=== PATIENT | female | born 1985 | race Caucasian/White ===

== ENCOUNTER 2017-09-09 17:56 | Emergency (ER) | payer OTHER ==
[2017-09-09] MEDS: ACETAMINOPHEN 325 MG TAB PO (22:03)
[2017-09-09] MEDS: SOD CHLORIDE 0.9% 1,000 ML IV (22:05)
[2017-09-09 22:17] LABS: ADD MAN DIFF? NO
[2017-09-09 22:21] LABS: BASOPHIL # 0.1 10^3/ul (0.0-0.1); BASOPHILS % 0.5 % (0.0-2.0); EOSINOPHILS # 0.1 10^3/ul (0.0-0.5); EOSINOPHILS % 0.8 % (0.0-7.0); HEMATOCRIT 39.5 % (37.0-47.0); HEMOGLOBIN 13.4 g/dl (12.0-16.0); LYMPHOCYTES # 4.2 10^3/ul (0.8-2.9); LYMPHOCYTES % 34.8 % (15.0-51.0); MEAN CORPUSCULAR HEMOGLOBIN 29.5 pg (29.0-33.0); MEAN CORPUSCULAR HGB CONC 33.9 g/dl (32.0-37.0); MEAN CORPUSCULAR VOLUME 86.8 fl (82.0-101.0); MEAN PLATELET VOLUME 9.8 fl (7.4-10.4); MONOCYTE # 0.9 10^3/ul (0.3-0.9); MONOCYTES % 7.5 % (0.0-11.0); NEUTROPHIL # 6.8 10^3/ul (1.6-7.5); PLATELET COUNT 355 10^3/UL (140-415); RED BLOOD COUNT 4.55 10^6/ul (4.20-5.40); RED CELL DISTRIBUTION WIDTH 13.8 % (11.5-14.5)
[2017-09-09 22:21] LABS: WHITE BLOOD COUNT 12.1 10^3/ul (4.8-10.8)
[2017-09-09 22:30] LABS: ADD UMIC YES; UR ASCORBIC ACID NEGATIVE (NEGATIVE); UR BILIRUBIN (Dip) NEGATIVE (NEGATIVE); UR BLOOD (Dip) 3+ mg/dL (NEGATIVE); UR CLARITY CLEAR (CLEAR); UR COLOR YELLOW (YELLOW); UR GLUCOSE (Dip) NEGATIVE (NEGATIVE); UR KETONES (Dip) 1+ mg/dL (NEGATIVE); UR LEUKOCYTE ESTERASE (Dip) NEGATIVE Leu/ul (NEGATIVE); UR MUCUS FEW /HPF (NONE SEEN); UR NITRITE (Dip) NEGATIVE (NEGATIVE); UR RBC 10 /HPF (0-5); UR SPECIFIC GRAVITY (Dip) 1.009 (1.003-1.030); UR SQUAMOUS EPITHELIAL CELL FEW /HPF (FEW); UR TOTAL PROTEIN (Dip) NEGATIVE (NEGATIVE); UR UROBILINOGEN (Dip) NEGATIVE (NEGATIVE); UR WBC 3 /HPF (0-5)
== END 2017-09-09 23:57 | disposition home or self-care (01) ==
LOC: FTE 17:56
DX: O20.9 Hemorrhage in early pregnancy, unspecified (principal); R10.2 Pelvic and perineal pain; Z3A.01 Less than 8 weeks gestation of pregnancy
CPT/HCPCS: 76801; 76817; 81001; 84702; 85025; 86900; 86901; 99285-25

== ENCOUNTER 2017-09-11 10:30 | Emergency (ER) | payer OTHER | END 2017-09-11 15:41 | disposition home or self-care (01) | LOC: FTE 10:30 | DX: N93.9 Abnormal uterine and vaginal bleeding, unspecified (principal) | CPT/HCPCS: 36415; 76801; 76817; 84702; 99284-25 ==

== ENCOUNTER 2018-08-04 10:42 | Inpatient (IN) | payer OTHER ==
[2018-08-04] MEDS ORDERED: OXYTOCIN 30 UNITS/LR 500 ML IV ×3 (11:00)
[2018-08-04] MEDS ORDERED: MISOPROSTOL 200 MCG TAB PR (11:00)
[2018-08-04] MEDS ORDERED: LIDOCAINE 1% (MPF) 30 ML INJ INJ (11:00)
[2018-08-04] MEDS ORDERED: IBUPROFEN 600 MG TAB PO (11:00)
[2018-08-04] MEDS ORDERED: METHYLERGONOVINE 0.2 MG INJ IM (11:00)
[2018-08-04] MEDS ORDERED: CARBOPROST 250 MCG INJ IM (11:00)
[2018-08-04 11:45] LABS: ADD MAN DIFF? NO
[2018-08-04 11:48] LABS: BASOPHILS % 0.5 % (0.0-2.0); EOSINOPHILS % 0.4 % (0.0-7.0); HEMATOCRIT 34.4 % (37.0-47.0); HEMOGLOBIN 11.2 g/dl (12.0-16.0); LYMPHOCYTES # 1.8 10^3/ul (0.8-2.9); LYMPHOCYTES % 23.5 % (15.0-51.0); MEAN CORPUSCULAR HEMOGLOBIN 27.4 pg (29.0-33.0); MEAN CORPUSCULAR HGB CONC 32.6 g/dl (32.0-37.0); MEAN CORPUSCULAR VOLUME 84.1 fl (82.0-101.0); MEAN PLATELET VOLUME 11.1 fl (7.4-10.4); MONOCYTE # 0.7 10^3/ul (0.3-0.9); MONOCYTES % 8.8 % (0.0-11.0); NEUTROPHIL # 4.9 10^3/ul (1.6-7.5); PLATELET COUNT 312 10^3/UL (140-415); RED BLOOD COUNT 4.09 10^6/ul (4.20-5.40); RED CELL DISTRIBUTION WIDTH 14.4 % (11.5-14.5)
[2018-08-04 11:48] LABS: WHITE BLOOD COUNT 7.5 10^3/ul (4.8-10.8)
[2018-08-04 12:03] LABS: ADD UMIC YES; UR ASCORBIC ACID NEGATIVE (NEGATIVE); UR BACTERIA MANY /HPF (NONE SEEN); UR BILIRUBIN (Dip) NEGATIVE (NEGATIVE); UR BLOOD (Dip) 3+ mg/dL (NEGATIVE); UR BUDDING YEAST FEW /HPF (NONE SEEN); UR CLARITY SLIGHTLY CLOUDY (CLEAR); UR COLOR YELLOW (YELLOW); UR GLUCOSE (Dip) NEGATIVE (NEGATIVE); UR KETONES (Dip) NEGATIVE (NEGATIVE); UR LEUKOCYTE ESTERASE (Dip) 2+ Leu/ul (NEGATIVE); UR NITRITE (Dip) NEGATIVE (NEGATIVE); UR RBC 1 /HPF (0-5); UR SPECIFIC GRAVITY (Dip) 1.004 (1.003-1.030); UR SQUAMOUS EPITHELIAL CELL FEW /HPF (FEW); UR TOTAL PROTEIN (Dip) NEGATIVE (NEGATIVE); UR UROBILINOGEN (Dip) NEGATIVE (NEGATIVE); UR WBC 9 /HPF (0-5)
[2018-08-04] MEDS: MISOPROSTOL 50 MCG CAPSULE PO ×3 (12:04→21:14)
[2018-08-04] MEDS: LACTATED RINGER'S 1,000 ML IV ×3 (12:04→21:14)
[2018-08-04 12:08] LABS: ALANINE AMINOTRANSFERASE 21 IU/L (13-69); ALBUMIN 3.8 g/dl (3.3-4.9); ALBUMIN/GLOBULIN RATIO 1.26; ALKALINE PHOSPHATASE 201 IU/L (42-121); ANION GAP 9 (5-13); ASPARTATE AMINO TRANSFERASE 30 IU/L (15-46); BILIRUBIN,INDIRECT 0.1 mg/dl (0-1.1); BILIRUBIN,TOTAL 0.1 mg/dl (0.2-1.3); BLOOD UREA NITROGEN 7 mg/dl (7-20); CALCIUM 9.2 mg/dl (8.4-10.2); CARBON DIOXIDE 24 mmol/L (21-31); CHLORIDE 107 mmol/L (97-110); CREATININE 0.75 mg/dl (0.44-1.00); Estimated GFR > 60 mL/min (>60); GLUCOSE 79 mg/dl (70-220); SODIUM 140 mmol/L (135-144); TOTAL PROTEIN 6.8 g/dl (6.1-8.1); URIC ACID 6.5 mg/dl (3.1-7.9)
[2018-08-04 12:11] LABS: INR 0.82; PROTIME 11.4 Sec (11.9-14.9); PT RATIO 0.9
[2018-08-04 12:12] LABS: PARTIAL THROMBOPLASTIN TIME 26.6 Sec (23.0-35.0)
[2018-08-04 12:41] LABS: HEPATITIS B SURFACE ANTIGEN NEGATIVE (NEGATIVE)
[2018-08-04] MEDS: AMPICILLIN 2 GM/NS (PMX) 100 ML IVPB (13:13)
[2018-08-04 16:28] LABS: RAPID PLASMA REAGIN NONREACTIVE (NR)
[2018-08-04] MEDS: AMPICILLIN 1 GM/NS (PMX) 50 ML IVPB ×2 (17:07→21:14)
[2018-08-05] MEDS: BUTORPHANOL 2 MG INJ IV (00:48)
[2018-08-05] MEDS: AMPICILLIN 1 GM/NS (PMX) 50 ML IVPB ×5 (01:40→17:25)
[2018-08-05] MEDS ORDERED: FENTAnyl 2MCG/ML-ROPIV 0.2% 100 ML (02:23)
[2018-08-05] MEDS: MISOPROSTOL 50 MCG CAPSULE PO ×2 (06:28→10:36)
[2018-08-05] MEDS ORDERED: EPHEDrine SULFATE 50 MG/5 ML SYG IV (11:00)
[2018-08-05] MEDS ORDERED: DIPHENHYDRAMINE 50 MG INJ IV (11:00)
[2018-08-05] MEDS ORDERED: NALOXONE (0.4 MG/ML) INJ IV ×2 (11:00→23:00)
[2018-08-05] MEDS ORDERED: ONDANSETRON 4 MG INJ IV ×2 (11:00→23:00)
[2018-08-05] MEDS: FENTAnyl 2MCG/ML-ROPIV 0.2% 100 ML BAG EPI (11:35)
[2018-08-05] MEDS: LACTATED RINGER'S 1,000 ML IV ×2 (11:39→20:15)
[2018-08-05] MEDS: OXYTOCIN 30 UNITS/LR 500 ML IV ×2 (16:13→23:45)
[2018-08-05] MEDS: CEFAZOLIN 2 GM/50 ML (PMX) 50 ML IVPB (20:37)
[2018-08-05] MEDS ORDERED: LIDOCAINE 1.5%/EPI MPF (SDV) 30 ML VIAL (21:15)
[2018-08-05] MEDS ORDERED: morphine SULFATE/PF (10 MG/10 ML) INJ (21:26)
[2018-08-05] MEDS ORDERED: METOCLOPRAMIDE 10 MG INJ (21:26)
[2018-08-05] MEDS ORDERED: OXYTOCIN 10 UNIT INJ (21:26)
[2018-08-05] MEDS ORDERED: CEFAZOLIN 1 GM INJ (21:30)
[2018-08-05] MEDS ORDERED: LABETALOL HCL 20MG INJ (21:40)
[2018-08-05] MEDS ORDERED: MEPERIDINE 100 MG INJ (21:59)
[2018-08-05] MEDS ORDERED: MIDAZOLAM 1 MG/ML 2 ML INJ (22:01)
[2018-08-05] MEDS ORDERED: CARBOPROST 250 MCG INJ IM (23:00)
[2018-08-05] MEDS ORDERED: morphine 2 MG INJ IV ×2 (23:00)
[2018-08-05] MEDS ORDERED: OXYCODONE/ACETAMINOPHEN (5/325) TAB PO ×2 (23:00)
[2018-08-05] MEDS ORDERED: OXYTOCIN 30 UNITS/LR 500 ML IV (23:00)
[2018-08-05] MEDS ORDERED: LANOLIN 7 GM TUBE TOP (23:00)
[2018-08-05] MEDS ORDERED: METHYLERGONOVINE 0.2 MG INJ IM (23:00)
[2018-08-05] MEDS ORDERED: MISOPROSTOL 200 MCG TAB PR (23:00)
[2018-08-05] MEDS ORDERED: MAGNESIUM SULFATE 4 GM/100 ML 100 ML (23:42)
[2018-08-05] MEDS: MAGNESIUM SULFATE 4 GM/100 ML 100 ML IVPB (23:48)
[2018-08-05] MEDS: MAGNESIUM SULFATE 20 GM/500 ML 500 ML IV (23:59)
[2018-08-06] MEDS ORDERED: IBUPROFEN 800 MG TAB PO
[2018-08-06] MEDS: OXYTOCIN 30 UNITS/LR 500 ML IV (02:40)
[2018-08-06] MEDS: DIPHENHYDRAMINE 50 MG INJ IV (04:48)
[2018-08-06 07:25] LABS: MAGNESIUM 5.2 mg/dl (1.7-2.5)
[2018-08-06] MEDS: LACTATED RINGER'S 1,000 ML IV ×2 (09:01→22:20)
[2018-08-06] MEDS: MAGNESIUM SULFATE 20 GM/500 ML 500 ML IV (10:46)
[2018-08-06 12:24] LABS: MAGNESIUM 5.6 mg/dl (1.7-2.5)
[2018-08-06] MEDS: KETOROLAC 30 MG INJ IV ×2 (14:56→21:57)
[2018-08-06] MEDS: morphine SULFATE/PF (10 MG/10 ML) INJ EPI (17:26)
[2018-08-06 19:19] LABS: MAGNESIUM 7.1 mg/dl (1.7-2.5)
[2018-08-07] MEDS: OXYCODONE/ACETAMINOPHEN (5/325) TAB PO ×2 (03:07→23:48)
[2018-08-07] MEDS: IBUPROFEN 800 MG TAB PO ×5 (05:59→23:41)
[2018-08-07 09:44] LABS: ADD MAN DIFF? NO
[2018-08-07 09:50] LABS: BASOPHILS % 0.2 % (0.0-2.0); EOSINOPHILS # 0.1 10^3/ul (0.0-0.5); HEMATOCRIT 29.3 % (37.0-47.0); HEMOGLOBIN 9.5 g/dl (12.0-16.0); LYMPHOCYTES # 1.7 10^3/ul (0.8-2.9); LYMPHOCYTES % 13.2 % (15.0-51.0); MEAN CORPUSCULAR HEMOGLOBIN 27.6 pg (29.0-33.0); MEAN CORPUSCULAR HGB CONC 32.4 g/dl (32.0-37.0); MEAN CORPUSCULAR VOLUME 85.2 fl (82.0-101.0); MEAN PLATELET VOLUME 11.5 fl (7.4-10.4); MONOCYTE # 0.8 10^3/ul (0.3-0.9); NEUTROPHIL # 10.3 10^3/ul (1.6-7.5); NEUTROPHILS % 79.1 % (39.0-77.0); PLATELET COUNT 287 10^3/UL (140-415); RED BLOOD COUNT 3.44 10^6/ul (4.20-5.40); RED CELL DISTRIBUTION WIDTH 14.7 % (11.5-14.5)
[2018-08-07 09:50] LABS: WHITE BLOOD COUNT 13.1 10^3/ul (4.8-10.8)
[2018-08-08] MEDS: IBUPROFEN 800 MG TAB PO ×3 (06:10→18:02)
[2018-08-08] MEDS: OXYCODONE/ACETAMINOPHEN (5/325) TAB PO (06:10)
[2018-08-08] MEDS: DIPHTH/TET/ACEL PERTUSS (ADULT) 0.5 ML VIAL IM* (11:26)
== END 2018-08-08 19:00 | disposition home or self-care (01) | DRG 788 ==
LOC: L-D 10:42 → PP1 08-06 00:59 → L-D 08-05 21:10
PROC: 3E033VJ Introduction of Other Hormone into Peripheral Vein, Percutaneous Approach (ICD-10-PCS; 2018-08-04)
PROC: 10D00Z1 Extraction of Products of Conception, Low, Open Approach (ICD-10-PCS; principal; 2018-08-05)
DX: O13.4 Gestational [pregnancy-induced] hypertension without significant proteinuria, complicating childbirth (principal); O62.0 Primary inadequate contractions; O69.81X0 Labor and delivery complicated by cord around neck, without compression, not applicable or unspecified; Z3A.39 39 weeks gestation of pregnancy; Z37.0 Single live birth
CPT/HCPCS: 62319; 80053; 81001; 83735; 84560; 85025; 85610; 85730; 86592; 86850; 86900; 86901; 87340; 90686; 90715; 99464